=== PATIENT | female | born 1985 | race Caucasian/White ===

== ENCOUNTER 2019-04-07 14:03 | Outpatient (CLI) | payer OTHER ==
[2019-04-07 14:49] LABS: BHCG - Serum Negative (NEGATIVE); Pregs Control Background? CLEAR/WHITE (CLR/WHITE); Pregs Control Bar Appear? YES (CONTROL BAR)
== END 2019-04-07 14:04 | disposition home or self-care (01) ==
LOC: LABBT 14:03
PROVIDERS: ATTEND Neurological Surgery
DX: Z01.818 Encounter for other preprocedural examination (principal); M50.121 Cervical disc disorder at C4-C5 level with radiculopathy
CPT/HCPCS: 84703

== ENCOUNTER 2019-04-15 05:43 | Day surgery (SDC) | payer OTHER ==
[2019-04-07 14:09] VITALS: BMI 23.1
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
[2019-04-15] MEDS ORDERED: Thrombin 5000 UNITS/5 ML VIAL ONE (06:17)
[2019-04-15] MEDS ORDERED: Fentanyl 100 MCG/2 ML VIAL ONE (06:18)
[2019-04-15] MEDS ORDERED: Midazolam HCl 2 mg/2 ml Vial ONE ×2 (06:18→06:39)
[2019-04-15] MEDS ORDERED: Morphine 4 MG/ML VIAL ONE (09:23)
[2019-04-15] MEDS ORDERED: HYDROcodone/Acetaminophen 5/325 mg Tablet ONE (09:56)
--- NOTE | 2019-04-15 11:04 | OP ---
DATE OF PROCEDURE: 04/15/2019 [employer] MECHANIC: Maynor Radford PA-C INDICATION: Pain. DIAGNOSIS: Cervical radiculopathy and cervical stenosis. PROCEDURE PERFORMED: Anterior cervical diskectomy and fusion, C4-C5. DESCRIPTION OF PROCEDURE: The patient was brought into the operating room and placed under general anesthesia. She was placed on the table in the supine position. A transverse incision was planned over the lateral aspect of the neck on the right. After prepping and draping and after an appropriate operative pause, the incision was created. The underlying platysma muscle was identified and incised. A blunt tissue plane anterior to the sternocleidomastoid muscle was used to gain access to the prevertebral space. The self-retaining retractors were placed and a C-arm image was obtained to confirm the appropriate level. An annulotomy was then performed in the C4-C5 disk space. All disk material as well as anterior and posterior osteophytes were removed. After decompressing the C4-C5 disk space, 6-mm lordotic PEEK cage packed with allograft and autograft material was placed within the interbody space. An anterior cervical plate was then fashioned to the front of spine and secured with a total of 4 fixed screws. Midline and lateral structures were inspected and found to be free from significant trauma. The wound was irrigated. Hemostasis was maintained throughout. The wound was then closed in anatomic layers and a pressure dressing was applied. There were no known procedural complications. Job ID: [id number]
[2019-04-15] MEDS ORDERED: Ondansetron ODT 4 MG TAB ONE (11:05)
[2019-04-15] MEDS ORDERED: Glycopyrrolate 0.2 MG/ML 5 ML SYRINGE ONE (13:31)
[2019-04-15] MEDS ORDERED: PROPOFOL 200 MG/20 ML VIAL ONE (13:31)
[2019-04-15] MEDS ORDERED: Rocuronium Bromide 10 MG/ML (10ML VIAL) ONE (13:31)
[2019-04-15] MEDS ORDERED: Ondansetron PF 4 MG/2 ML Vial ONE (13:31)
[2019-04-15] MEDS ORDERED: Dexamethasone 20 MG/5 ML VIAL ONE (13:31)
[2019-04-15] MEDS ORDERED: Lidocaine 1% PF 5 ML VIAL ONE (13:31)
[2019-04-15] MEDS ORDERED: Ketorolac Tromethamine 30 MG/ML VIAL ONE (13:31)
== END 2019-04-15 11:25 | disposition home or self-care (01) ==
LOC: SDC 05:43
PROVIDERS: ATTEND Neurological Surgery
PROC: 0RT30ZZ Resection of Cervical Vertebral Disc, Open Approach (ICD-10-PCS; principal; 2019-04-15)
PROC: 0RG10A0 Fusion of Cervical Vertebral Joint with Interbody Fusion Device, Anterior Approach, Anterior Column, Open Approach (ICD-10-PCS; principal; 2019-04-15)
DX: M50.121 Cervical disc disorder at C4-C5 level with radiculopathy (principal); M50.021 Cervical disc disorder at C4-C5 level with myelopathy; M48.02 Spinal stenosis, cervical region; G89.4 Chronic pain syndrome; J30.2 Other seasonal allergic rhinitis; F90.0 Attention-deficit hyperactivity disorder, predominantly inattentive type; Z79.899 Other long term (current) drug therapy
CPT/HCPCS: 76000; C1713; C1776; J0690; J2250; J2270; J3010; Q0162